=== PATIENT | female | born 1940 | race Caucasian/White ===

== ENCOUNTER 2016-08-16 11:25 | Outpatient (CLI) | payer MEDICARE | END 2016-08-16 11:26 | disposition home or self-care (01) | DX: E78.5 Hyperlipidemia, unspecified (principal); D64.9 Anemia, unspecified; R68.89 Other general symptoms and signs; Z86.39 Personal history of other endocrine, nutritional and metabolic disease ==

== ENCOUNTER 2016-10-24 20:46 | Emergency (ER) | payer MEDICARE ==
[2016-10-24 21:19] LABS: BASOPHILS % (AUTO) 0.1 %; EOSINOPHILS % (AUTO) 0.6 %; HCT - HEMATOCRIT 40.4 % (37.0-47.0); HGB - HEMOGLOBIN 13.3 g/dL (12.0-16.0); LYMPHOCYTES # (AUTO) 0.4 10^3/uL (1.5-3.5); LYMPHOCYTES % (AUTO) 4.9 %; MEAN CORPUSCULAR HEMOGLOBIN 30.4 pg (27.0-31.0); MEAN CORPUSCULAR HGB CONC 32.9 g/dL (32.0-36.0); MEAN CORPUSCULAR VOLUME 92.3 fL (81.0-99.0); MEAN PLATELET VOLUME 7.8 fL (7.9-10.8); MONOCYTES % (AUTO) 0.4 %; NEUTROPHILS # (AUTO) 6.9 10^3/uL (1.5-6.6); NUCLEATED RED BLOOD CELLS AUTO 0.1 /100WBC; RED BLOOD COUNT 4.38 10^6/uL (4.20-5.40); RED CELL DISTRIBUTION WIDTH 13.1 % (12.0-15.0); UNCORRECTED WHITE BLOOD COUNT 7.4 x10^3/uL; WHITE BLOOD COUNT 7.4 x10^3/uL (4.8-10.8)
[2016-10-24] MEDS ORDERED: SODIUM CHLORIDE 0.9% 1,000 ML IV ONE ×3 (21:20→23:34)
[2016-10-24] MEDS ORDERED: ONDANSETRON 4 MG/2 ML VIAL IVP STA (21:20)
--- NOTE | 2016-10-24 21:26 | ED Physician Documentation ---
PD HPI NVD - Stated complaint Stated Complaint: NVD - Chief complaint Chief Complaint: Abd Pain - History obtained from History obtained from: Patient, Family - History of Present Illness Timing - onset: Enter time (1900), Today Timing - duration: Hours Timing - details: Abrupt onset, Still present Associated symptoms: Abdominal pain, Dizzy, Other (chills) Contributing factors: Bad food (only thing different from her was the steak sauce.) Improved by: Laying still, Vomiting Similar symptoms before: Has not had sx before Recently seen: Not recently seen - Additonal information Additional information: 76 y/o previously healthy female on no medications had dinner with her about 630pm this evening and about 30 minutes later she developed chills, abdominal pain, diarrhea and vomiting. The vomiting was violent and she continues to be nauseated. The vomiting did seem to make the pain in the abdomen better. Review of Systems Constitutional: reports: Chills, Myalgias. denies: Fever Eyes: denies: Decreased vision Ears: denies: Ear pain Nose: denies: Congestion Throat: denies: Sore throat Cardiac: denies: Chest pain / pressure, Palpitations Respiratory: denies: Dyspnea, Cough GI: reports: Abdominal Pain, Nausea, Vomiting, Diarrhea : denies: Dysuria, Frequency Skin: denies: Rash Musculoskeletal: denies: Neck pain, Back pain Neurologic: reports: Generalized weakness. denies: Focal weakness, Numbness PD PAST MEDICAL HISTORY - Present Medications Home Medications: Ambulatory Orders Medication Instructions Recorded Confirmed Sulfamethoxazole/Trimethoprim 1 each PO BID #14 tablet 10/25/16 [Sulfamethoxazole-Tmp Ds Tablet] - Allergies Allergies/Adverse Reactions: Allergies Allergy/AdvReac Type Severity Reaction Status Date / Time No Known Drug Allergies Allergy Verified 10/24/16 20:53 PD ED PE NORMAL - Vitals Vital signs reviewed: Yes (normal ) - General General: Alert and oriented X 3, Well developed/nourished, Other (the patient appears nauseated. ) - HEENT HEENT: Atraumatic, PERRL, EOMI - Neck Neck: Supple, no meningeal sign - Cardiac Cardiac: RRR, Other (2/6 holosystolic murmer at LSB) - Respiratory Respiratory: No respiratory distress, Clear bilaterally - Abdomen Abdomen: Soft, Non tender - Back Back: No CVA TTP, No spinal TTP - Derm Derm: Normal color, Warm and dry, No rash - Extremities Extremities: No deformity, No edema - Neuro Neuro: Alert and oriented X 3, No motor deficit, No sensory deficit, Normal speech - Psych Psych: Normal mood, Normal affect Results - Vitals Vitals: Vital Signs - 24 hr 10/24/16 10/24/16 20:52 22:28 Temperature 37.1 C Heart Rate 88 87 Respiratory 19 18 Rate Blood Pressure 105/64 101/51 L O2 Saturation 99 99 Oxygen O2 Source Room air - Labs Labs: Laboratory Tests 10/24/16 10/24/16 10/24/16 21:00 21:00 23:11 WBC 7.4 RBC 4.38 Hgb 13.3 Hct 40.4 MCV 92.3 MCH 30.4 MCHC 32.9 RDW 13.1 Plt Count 253 MPV 7.8 L Neut # 6.9 H Lymph # 0.4 L Stanly # 0.0 Eos # 0.0 Baso # 0.0 Absolute Nucleated RBC 0.01 Nucleated RBCs 0.1 Manual Slide Review Indicated WBC Morphology NORMAL APPEARANCE Platelet Estimate NORMAL (130-450,000) Platelet Morphology NORMAL APPEARANCE RBC Morph Micro Appear NORMAL APPEARANCE Sodium 141 Potassium 3.8 Chloride 104 Carbon Dioxide 26 Anion Gap 11.0 BUN 24 H Creatinine 1.0 Estimated GFR (MDRD) 54 L Glucose 110 H Calcium 9.6 Total Bilirubin 0.7 AST 33 ALT 18 Alkaline Phosphatase 68 Total Protein 6.5 L Albumin 4.4 Globulin 2.1 Albumin/Globulin Ratio 2.1 Lipase 25 Urine Color YELLOW Urine Clarity CLOUDY Urine pH 5.5 Ur Specific [place] 1.015 Urine Protein TRACE Urine Glucose (UA) NEGATIVE Urine Ketones NEGATIVE Urine Occult Blood MODERATE H Urine Nitrite POSITIVE H Urine Bilirubin NEGATIVE Urine Urobilinogen 0.2 (NORMAL) Ur Leukocyte Esterase MODERATE H Urine RBC 6-10 H Urine WBC >25 H Ur Squamous Epith Cells RARE Squamous Urine Bacteria Moderate H Ur Microscopic Review INDICATED Urine Culture Comments INDICATED Procedures - IVC sono (time) 2119 Bedside IVC sono: IVC measures (cm) (0.66), Significant dehydration PD MEDICAL DECISION MAKING - ED course Complexity details: reviewed old records, reviewed results, re-evaluated patient , considered differential, d/w patient, d/w family ED course: 76 y/o previously well female with violent vomiting and diarrhea after dinner appears on initial evaluation to have acute staph food poisoning. An IV is begun and she is given saline and zofran. The patient responds well to fluids and anti-emetic. She feels like she wants to go home and on evaluation she has UTI and she is given rocephin 1gm IV. Departure - Departure Disposition: Home, Self Care Clinical Impression: Gastroenteritis Urinary tract infection Qualifiers: Urinary tract infection type: acute cystitis Hematuria presence: without hematuria Qualified Code(s): N30.00 - Acute cystitis without hematuria Instructions: ED UTI Cystitis Female, ED Food Poison Or Gastroenteritis Follow-Up: Cassi Car MD [Primary Care Provider] - Prescriptions: Sulfamethoxazole/Trimethoprim [Sulfamethoxazole-Tmp Ds Tablet] 1 each PO BID # 14 tablet
[2016-10-24 21:32] LABS: ALBUMIN/GLOBULIN RATIO 2.1 (1.0-2.2); BILIRUBIN,TOTAL 0.7 mg/dL (0.2-1.0); CALCIUM 9.6 mg/dL (8.5-10.3); POTASSIUM 3.8 mmol/L (3.5-5.0); TOTAL PROTEIN 6.5 g/dL (6.7-8.2)
[2016-10-24] MEDS ORDERED: SODIUM CHLORIDE FLUSH 0.9% 10 ML SYRINGE IVP ONE (21:35)
[2016-10-24] MEDS ORDERED: ONDANSETRON 4 MG/2 ML VIAL ONE (21:35)
[2016-10-24 22:10] LABS: PLATELET ESTIMATE, MANUAL NORMAL (130-450,000) (NORMAL); PLATELET MORPHOLOGY NORMAL APPEARANCE (NORMAL)
[2016-10-24 22:11] LABS: WBC MORPHOLOGY (MULTIPLE) NORMAL APPEARANCE (NORMAL)
[2016-10-24 23:19] LABS: BILIRUBIN,URINE NEGATIVE (NEGATIVE); PH,URINE 5.5 PH (5.0-7.5)
[2016-10-24 23:30] LABS: UA w/ MICROSCOPIC CHARGE YES; UR CULTURE IF IND INDICATED; WBC,URINE >25 /HPF (0-5)
[2016-10-24] MEDS ORDERED: cefTRIAXone 1 GM in SODIUM CHLORIDE 0.9% MINIBAG 100 ML IV STA (23:34)
[2016-10-25] MEDS ORDERED: SODIUM CHLORIDE 0.9% 1,000 ML IV ONE (00:02)
[2016-10-25] MEDS ORDERED: SODIUM CHLORIDE 0.9% MINIBAG 100 ML IV ONE (00:02)
[2016-10-25] MEDS ORDERED: cefTRIAXone 1 GM VIAL ONE (00:02)
[2016-10-25] MEDS ORDERED: ONDANSETRON ODT 4 MG Prepack 2 TL PRN (01:14)
[2016-10-25] MEDS ORDERED: ONDANSETRON ODT 4 MG Prepack 2 TL ONE (01:24)
[2016-10-25 01:29] VITALS: BP 103/58
== END 2016-10-25 01:40 | disposition home or self-care (01) ==
LOC: ED 20:46
DX: K52.9 Noninfective gastroenteritis and colitis, unspecified (principal); N30.00 Acute cystitis without hematuria
CPT/HCPCS: 36415; 80053; 81001; 81003; 83690; 85025; 87077; 87086; 96361; 96374; 96375; 99284

== ENCOUNTER 2023-07-07 11:54 | Emergency (ER) | payer MEDICARE ==
--- NOTE | 2023-07-07 13:31 | ED Physician Documentation ---
History of Present Illness - Stated complaint Stated Complaint: DIFF HEARING R EAR - Chief complaint Chief Complaint: Heent - Additonal information Additional information: 82-year-old female presents emergency department for ongoing right hearing loss. patient originally went to cable installation technician for right hearing loss and They told her that she had impacted serum and needed to present to her primary care provider for ear cleaning. Yesterday went to PCP had her right ear irrigated thoroughly there was a scant amount of blood visualized by her primary care provider, today she went back to the doctor for ongoing right ear hearing loss that she says is no different in comparison to what it has been all along and her PCP sent her to the emergency department for gunnar blood in her right ear canal. She says that she has not visualize any blood on her pillowcase and has not noticed any oozing or bleeding from the ear since has been irrigated yesterday. PD PAST MEDICAL HISTORY - Past Medical History Past Medical History: No - Past Surgical History Past Surgical History: Yes HEENT: Other - Present Medications Home Medications: Ambulatory Orders Medication Instructions Recorded Confirmed Ofloxacin 0.3% Ophth Drops 10 drops RIGHTEAR DAILY 7 Days #5 07/07/23 [Ocuflox 0.3% Ophth Drops] ml - Allergies Allergies/Adverse Reactions: Allergies Allergy/AdvReac Type Severity Reaction Status Date / Time No Known Drug Allergies Allergy Verified 07/07/23 12:12 - Social History Does the pt smoke?: No Smoking Status: Never smoker Does the pt drink ETOH?: Yes Does the pt have substance abuse?: No - Immunizations Immunizations are current?: Yes PD ED PE NORMAL - Vitals Vital signs reviewed: Yes - General General: Alert and oriented X 3, No acute distress, Well developed/nourished - Free text exam Free text exam: Left tympanic membrane is within normal limits intact completely visualized no cerumen external ear canal is within normal limits Right ear canal is completely obstructed with cerumen as well as gunnar blood visualized at the bottom portion of the ear. Tympanic membrane is not visualized due to cerumen impaction. Results - Vitals Vitals: Vital Signs - 24 hr 07/07/23 07/07/23 12:09 15:32 Temperature 36.4 C L Heart Rate 68 60 Respiratory 18 18 Rate Blood Pressure 146/76 H 146/75 H O2 Saturation 100 99 Oxygen O2 Source Room air PD Medical Decision Making - ED course ED course: 82-year-old female presents emergency department for bleeding from her right ear. Primary care provider sent her to the emergency department. We soaked right ear twice with hydroperoxide normal saline solution to help with softening of the earwax. We were able to remove a significant amount of cerumen from the right ear I believe that the bleeding is coming from underneath the cerumen that has been there for a prolonged period of time causing some erosion of the skin. There is still a large amount of cerumen impaction we will not continue to irrigate we want to give that right ear a break. She has been's prescribed some antibiotic eardrops that she can worm picker from her preferred pharmacy and was given a referral to follow-up with [facility] in [place] and was told to call them tomorrow or Monday morning to try and get an appoint with them for ongoing cerumen extraction. She was taught signs and symptoms of ear infection and when to report back to the emergency department. Patient is grateful for the large cerumen removed from her right ear Departure - Departure Disposition: 01 Home, Self Care Clinical Impression: Impacted cerumen of right ear Ear canal abrasion Qualifiers: Encounter type: subsequent encounter Laterality: right Qualified Code(s): S00.411D - Abrasion of right ear, subsequent encounter Instructions: Earwax Impacted Follow-Up: [facility] [place] [Provider Group] Prescriptions: Ofloxacin 0.3% Ophth Drops [Ocuflox 0.3% Ophth Drops] 10 drops RIGHTEAR DAILY 7 Days #5 ml Comments: Thank you for trusting us with your care I have started you on ofloxacin eardrops to the right ear. Place 10 drops in your right ear once a day. Please follow-up with [facility] next week for further evaluation of your right ear cerumen impaction. Please come back to the emergency department for starting develop any worsening or severe pain drainage that looks yellow or green, fevers or chills or pain that radiates to your jaw or any other concerning symptoms. Forms: PCP List Discharge Date/Time: 07/07/23 15:31
[2023-07-07 15:36] VITALS: BP 146/75; O2SAT 99
== END 2023-07-07 15:31 | disposition home or self-care (01) ==
LOC: ED 11:54
DX: H61.21 Impacted cerumen, right ear (principal); S00.411A Abrasion of right ear, initial encounter; X58.XXXA Exposure to other specified factors, initial encounter
CPT/HCPCS: 69209; 99282; 99283